=== PATIENT | male | born 1980 | race African-American/Black ===

== ENCOUNTER 2024-01-09 01:55 | Emergency (ER) | payer OTHER ==
[~2024-01-09] VITALS: Ht 188 cm; Wt 102.6 kg
[2024-01-09 02:34] LABS: Basophils # (auto) 0.1 10 ^3/uL (0-0.2); Basophils % (auto) 0.9 % (0.0-2.0); Eosinophils # (auto) 0.6 10 ^3/uL (0-0.8); Eosinophils % (auto) 6.4 % (0.0-7.0); Hematocrit 37.4 % (41.0-53.0); Hemoglobin 12.5 g/dL (13.5-17.5); Lymphocytes # (auto) 2.5 10 ^3/uL (0.4-5.4); Lymphocytes % (auto) 26.9 % (10.0-50.0); Mean Corpuscular Hemoglobin 29.6 pg (28.0-32.0); Mean Corpuscular Hgb Conc. 33.4 g/dL (32.0-36.0); Mean Corpuscular Volume 88.8 fL (80.0-100.0); Monocytes # (auto) 0.8 10 ^3/uL (0-1.3); Monocytes % (auto) 8.8 % (0.0-12.0); Neutrophils # (auto) 5.2 10 ^3/uL (1.6-8.6); Platelet Count (auto) 285 10^3/uL (140-450); Red Blood Cells 4.22 10^6/uL (4.5-5.90); White Blood Cell 9.1 10^3/uL (4.4-10.8)
[2024-01-09 02:47] LABS: Alanine Aminotransferase 19 U/L (7-40); Albumin 4.6 g/dL (3.2-4.8); Alkaline Phosphatase 50 U/L (46-116); Anion Gap 4 (5-15); Aspartate Aminotransferase 21 U/L (13-40); BUN/Creatinine Ratio 10.3 (10.0-20.0); Blood Urea Nitrogen 10 mg/dL (9-23); Calcium 9.5 mg/dL (8.7-10.4); Carbon Dioxide 27 mmol/L (20-30); Chloride 111 mmol/L (98-107); Glucose 71 mg/dL (74-106); Potassium 3.6 mmol/L (3.5-5.1); Sodium 142 mmol/L (136-145)
[2024-01-09 02:48] LABS: Bilirubin, Total 0.4 mg/dL (0.2-1.0); Total Protein 7.5 g/dL (5.7-8.2)
[2024-01-09 03:38] LABS: Urine Bacteria MANY /hpf (None Seen); Urine Blood 3+ /uL (Negative); Urine Clarity Turbid (Clear); Urine Color Brown (Yellow); Urine Mucus FEW (None Seen); Urine Protein, UAD 2+ (Negative); Urine Specific Gravity 1.027 (1.001-1.035); Urine Urobilinogen Normal (Negative); Urine WBC 29 /hpf (0 - 3); Urine pH 5.5 (5.0-9.0)
[2024-01-09] MEDS ORDERED: HYDR-4072 PO (04:34)
[2024-01-09] MEDS ORDERED: LEVO500T91 PO ×2 (04:34→10:42)
[2024-01-09 04:45] VITALS: BP 150/68; PULSE 67; RESP 20; TEMP 97.7; O2SAT 100
[2024-01-09] MEDS ORDERED: HYDR-4798 PO (10:41)
== END 2024-01-09 04:50 | disposition home or self-care (01) ==
LOC: ER 01:55
DX: N40.1 Benign prostatic hyperplasia with lower urinary tract symptoms (principal); N13.8 Other obstructive and reflux uropathy; K57.30 Diverticulosis of large intestine without perforation or abscess without bleeding; K59.00 Constipation, unspecified; K42.9 Umbilical hernia without obstruction or gangrene; K40.20 Bilateral inguinal hernia, without obstruction or gangrene, not specified as recurrent; K76.9 Liver disease, unspecified; Z88.8 Allergy status to other drugs, medicaments and biological substances; Z88.0 Allergy status to penicillin
CPT/HCPCS: 36415; 74176; 80053; 81001; 85025

== ENCOUNTER 2024-01-09 09:25 | Emergency (ER) | payer OTHER ==
[~2024-01-09] VITALS: Ht 188 cm; Wt 101.7 kg
[~2024-01-09 09:25] MED LIST: HYDR-4072 PO; LEVO500T91 PO
[2024-01-09 10:30] VITALS: BP 143/92; PULSE 42; RESP 20; TEMP 97.6; O2SAT 95
[2024-01-09] MEDS ORDERED: HYDR-4798 PO (10:41)
[2024-01-09] MEDS ORDERED: LEVO500T91 PO (10:42)
== END 2024-01-09 10:49 | disposition home or self-care (01) ==
LOC: ER 09:25
DX: Z76.0 Encounter for issue of repeat prescription (principal); Z87.442 Personal history of urinary calculi; Z88.0 Allergy status to penicillin; Z79.899 Other long term (current) drug therapy; Z88.8 Allergy status to other drugs, medicaments and biological substances

== ENCOUNTER 2024-05-22 18:56 | Emergency (ER) | payer OTHER ==
[~2024-05-22] VITALS: Ht 188 cm; Wt 103.2 kg
[~2024-05-22 18:56] MED LIST changes: -HYDR-4072 PO; +HYDR-4798 PO
--- NOTE | 2024-05-22 19:17 | ED.PDOC ---
Back pain HPI HPI Comments THIS IS A 44-YEAR-OLD MALE PRESENTS TO THE ER WITH CHIEF COMPLAINT LEFT ELBOW PAIN X YESTERDAY. STATES HE WAS WRESTLING AND HIT ELBOW ON WALL. EDEMA AND TENDERNESS NOTED. UNABLE TO FLEX OR EXTEND C/O PAIN PRESSURE AND ACHY IN NATURE NONRADIATING 8/10 ON PAIN SCALE. DENIES ANY OTHER KNOWN INJURY, NUMBNESS, OR WEAKNESS. Chief Complaint: Upper Extremity Time Seen by MD: 19:00 Primary Care Provider: NONE Reviewed Notes: Nurses Notes, Medications, Allergies Allergies: Coded Allergies: Ibuprofen (Verified Allergy, Unknown, 11/21/17) Ketorolac Tromethamine (Verified Allergy, Unknown, 11/21/17) Penicillins (Verified Allergy, Unknown, 11/21/17) Tramadol (Verified Allergy, Unknown, 11/21/17) Home Meds Active Scripts Hydrocodone-Acetaminophen (Hydrocodone Bitartrate/AC 5-325 mg) 1 Tab Tab, 1 TAB PO TID PRN, #24 TAB Prov:VALENTE CATES 05/22/24 Levofloxacin Hemihydrate (LEVAQUIN 500 MG) 500 Mg Tab, 500 MG PO DAILY for 7 Days, #7 TAB Prov:EVERTON DANGELO 01/09/24 Hydrocodone-Acetaminophen (Hydrocodone Bitartrate/AC 10-325 mg) 1 Tab Tab, 1 TAB PO BID, #14 TAB Prov:EVERTON DANGELO 01/09/24 Information Source: Patient Past Medical History PAST MEDICAL HISTORY: Kidney Stones Surgical History: Denies all surgeries Family History Family History: Unknown Social History Smoker: Non-Smoker Lives In: Home Constitutional: denies: chills, diaphoresis, fatigue, fever, malaise, sweats, weakness, others EENTM: denies: blurred vision, double vision, ear bleeding, ear discharge, ear drainage, ear pain, ear ringing, eye pain, eye redness, hearing loss, mouth pain, mouth swelling, nasal discharge, nose bleeding, nose congestion, nose pain, photophobia, tearing, throat pain, throat swelling, voice changes, others Respiratory: denies: cough, hemoptysis, orthopnea, SOB at rest, shortness of breath, SOB with excertion, stridor, wheezing, others Cardiovascular: denies: chest pain, dizzy spells, diaphoresis, Dyspnea on exertion, edema, irregular heart beat, left arm pain, lightheadedness, palpitations, PND, syncope, others Gastrointestinal: denies: abdomen distended, abdominal pain, blood streaked bowels, constipated, diarrhea, dysphagia, difficulty swallowing, hematemesis, melena, nausea, poor appetite, poor fluid intake, rectal bleeding, rectal pain, vomiting, others Genitourinary: denies: burning, dysuria, flank pain, frequency, hematuria, incontinence, penile discharge, penile sore, pain, testicle pain, testicle swelling, urgency, others Neurological: denies: dizziness, fainting, headache, left sided numbness, left sided weakness, numbness, paresthesia, pre-existing deficit, right sided numbness, right sided weakness, seizure, speech problems, tingling, tremors, weakness, others Musculoskeletal: reports: others (LEFT ELBOW PAIN AND SWELLING); denies: back pain, gout, joint pain, joint swelling, muscle pain, muscle stiffness, neck pain Integumetry: denies: bruises, change in color, change in hair/nails, dryness, laceration, lesions, lumps, rash, wounds, others Allergic/Immunocompromised: denies: Difficulty Healing, Frequent Infections, Hives, Itching, others Hematologic/Lymphatic: denies: anemia, blood clots, easy bleeding, easy bruising, swollen glands, others Endocrine: denies: excessive hunger, excessive sweating, excessive thirst, excessive urination, flushing, intolerance to cold, intolerance to heat, unexplained weight gain, unexplained weight loss, others Psychiatric: denies: anxiety, bipolar disorder, depression, hopeless, panic disorder, schizophrenia, sleepless, suicidal, others Physical Exam General Appearance: No Apparent Distress, Normal HEENT: Pharynx Normal Neck: Full Range of Motion, Non-Tender Respiratory: Lungs Clear, No Respiratory Distress, Normal Breath Sounds Cardiovascular: No Murmur, Normal Peripheral Pulses, Regular Rate/Rhythm Breast Exam: Deferred Gastrointestinal: Non Tender, Soft Genitalia: Deferred Pelvic: Deferred Rectal: Deferred Extremities: Normal capillary refill, Normal inspection, Normal range of motion, Non-tender, No pedal edema Musculoskeletal : Location: Left Extremity Location: Elbow (MODERATE EDEMA WITH MODERATE TENDERNESS PALPATION NO NOTED CREPITUS OR BONY PROMINENCE NO NOTED ERYTHEMA TRACE ECCHYMOSIS NO NOTED LESIONS, ABRASIONS, OR LACERATIONS.) Apperance: Normal Neurologic: Alert, ap operator II-XII nml as Tested, No Motor Deficits, Normal Affect, Normal Mood, No Sensory Deficits Cerebellar Function: Normal Reflexes: Normal Skin: Dry, Normal Color, Warm Lymphatic: No Adenopathy Was a procedure done? Was a procedure done?: No Back Pain Differential Dx Differential Diagnosis: Fracture, Musculoskeletal Pain X-Ray, Labs, Meds, VS Vital Signs Date Time Temp Pulse Resp B/P (MAP) Pulse Ox O2 Delivery O2 Flow Rate FiO2 05/22/24 20:12 98.4 77 16 158/110 (126) 95 98.4 05/22/24 20:12 77 16 95 Room Air 05/22/24 19:16 98.4 76 16 150/90 (110) 96 Current Medications Medications (Trade) Dose Ordered Sig/Fam Route Start Time Stop Time Status Last Admin Acetaminophen/ Hydrocodone Bitart (Mascot 5/325MG Tab) 2 tab ONCE ONCE PO 05/22/24 20:00 05/22/24 20:01 DC 05/22/24 20:09 X-Ray, Labs, Meds, VS Comment PATIENT'S LEFT ELBOW PLACED IN SPLINT AND SLING FOR COMFORT. ADVISED PATIENT TO FOLLOW UP WITH ORTHO 2-3 DAYS FOR CONSULT IN RE-EVALUATION. HYDROCODONE SENT PATIENT'S PHARMACY FOR PAIN ADVISED NO ALCOHOL AND DRIVING WHILE ON MEDICATION. ADVISED ON RICE. ER RETURN PRECAUTIONS GIVEN PATIENT INDICATED UNDERSTANDING AND AGREES WITH DISCHARGE PLAN OF CARE. Time of 1ST Reevaluation: 21:10 Reevaluation 1ST: Improved Patient Education/Counseling: Diagnosis, Treatment, Prognosis, Need For Follow Up Family Education/Counseling: No Family Present Departure 1 Departure Time of Disposition: 21:10 Impression: Primary Impression: Closed olecranon fracture Qualified Codes: S52.022A - Displaced fracture of olecranon process without intraarticular extension of left ulna, initial encounter for closed fracture Additional Impression: Nondisplaced avulsion fracture of lateral epicondyle of humerus Qualified Codes: S42.435A - Nondisplaced fracture (avulsion) of lateral epicondyle of left humerus, initial encounter for closed fracture Disposition: HOME / SELF CARE / HOMELESS Condition: Stable e-Prescriptions Hydrocodone-Acetaminophen (Hydrocodone Bitartrate/AC 5-325 mg) 1 Tab Tab 1 TAB PO TID PRN, #24 TAB Prov: VALENTE CATES 05/22/24 Discharged With: Self Critical Care Note Critical Care Time?: No Stability Stability form required: CARLY Woods May 22, 2024 19:17
--- NOTE | 2024-05-22 19:45 | DVH ---
EXAM: XR Left Elbow Complete, 3 or More Views CLINICAL INDICATION: INJURY/SWELLING TECHNIQUE: Frontal, lateral and oblique views of the left elbow. COMPARISON: None FINDINGS: BONES/JOINTS: Bony fragment of the lateral epicondyle, likely a mildly displaced avulsion fracture. Bony fragment of the posterior elbow, likely avulsion fracture from the olecranon. No dislocation. SOFT TISSUES: Soft tissue swelling.. OTHER FINDINGS: . . IMPRESSION: 1. Bony fragment of the lateral epicondyle, likely a mildly displaced avulsion fracture. 2. Bony fragment of the posterior elbow, likely avulsion fracture from the olecranon. HS:Y
[2024-05-22] MEDS: HYDROcodone-ACET 5/325MG TAB PO ONE (20:09)
[2024-05-22 20:12] VITALS: PULSE 77; RESP 16; TEMP 98.4; O2SAT 95
[2024-05-22] MEDS ORDERED: HYDR-4902 PO (20:34)
[2024-05-22 21:21] VITALS: BP 156/98
== END 2024-05-22 21:22 | disposition home or self-care (01) ==
LOC: ER 18:56
DX: S52.022A Displaced fracture of olecranon process without intraarticular extension of left ulna, initial encounter for closed fracture (principal); S42.435A Nondisplaced fracture (avulsion) of lateral epicondyle of left humerus, initial encounter for closed fracture; Z88.0 Allergy status to penicillin; Z87.442 Personal history of urinary calculi; Z88.5 Allergy status to narcotic agent; Z88.6 Allergy status to analgesic agent; W22.01XA Walked into wall, initial encounter; Y93.72 Activity, wrestling; Y92.89 Other specified places as the place of occurrence of the external cause; Y99.8 Other external cause status
CPT/HCPCS: 29105; 73080